=== PATIENT | female | born 1950 ===

== ENCOUNTER 2021-07-08 06:00 | Day surgery (SDC) | payer OTHER ==
[2021-07-08] MEDS ORDERED: MACROBID 100 M100 MG PO (09:43)
== END 2021-07-08 14:40 | disposition home or self-care (01) ==
LOC: CIR.AMB 06:00
PROVIDERS: ATTEND Obstetrics & Gynecology Gynecology
DX: N81.5 Vaginal enterocele (principal); N81.6 Rectocele; Z20.822 Contact with and (suspected) exposure to COVID-19